=== PATIENT | female | born 1980 | race Caucasian/White ===

== ENCOUNTER 2018-05-24 17:05 | Inpatient (IN) ==
[2018-05-24] MEDS ORDERED: *HR* FentaNYL (PF) 100 MCG/2 ML VIAL IVP ONE (19:43)
[2018-05-24] MEDS ORDERED: Piperacillin/Tazobactam 3.375 GM in 0.9 % Sodium Chloride Mini Bag 100 ML IVPB ONE (19:46)
--- NOTE | 2018-05-24 19:52 | Emergency Department Note ---
Addendum entered and electronically signed by Praveen Correa 05/24/18 21:49: CTA currently pending due to concern for pulmonary embolism post elevated d- dimer. Patient care signed over to physicians Dr. Elham Alfaro and Dr. Gamal Daly at the end of my shift. Please see documentation by these physicians for further evaluation, management, and final disposition. Patient is hemodynamically stable at this time. Original Note: Disposition Clinical Impression: Septic shock Disposition: Admitted As Inpatient Referrals: NONE,PCP [Primary Care Provider] - Forms: ED Satisfaction Letter General Adult HPI - General Chief complaint: ED Nausea/Vomiting/Diarrhea Stated complaint: Pain all over Time Seen by Provider: 05/24/18 19:24 Source: patient Mode of arrival: ambulatory Limitations: no limitations Nursing Notes Reviewed: Yes Vital Signs Reviewed: Yes - History of Present Illness HPI Narrative: Patient is a 30-year-old female presenting to [facility] ED for a 3 day history of headaches, neck and back pain, chest pain/shortness of breath, nausea/vomiting/diarrhea. Patient states that she "hurts all over." Patient admits to past medical history of asthma for which she takes albuterol inhaler. Patient denies any other past medical history or medications. Patient states that she has no known drug allergies. Upon initial examination patient is lying in hospital bed, she is visibly shaking, she is complaining of extreme pain and myalgias throughout her body. Patient states that she has a tight feeling in her chest and is unable to take a deep breath. Onset (ago): day(s) Location: head, abdomen Pain Severity: severe Pain Scale: 8 - Related Data Home Medications Medication Instructions Recorded Confirmed Albuterol Inhaler 04/06/18 Allergies Allergy/AdvReac Type Severity Reaction Status Date / Time No Known Allergies Allergy Verified 04/06/18 15:28 All systems ED: reviewed and negative except as stated. Review of Systems: As Per HPI Past Medical History - Past Medical History Attestation: Yes The following information was validated with the patient. Source: patient, obtained from family Medical history: Reports: asthma Surgical history: Reports: orthopedic, other, other Psychiatric history: Reports: no psych history [employer] history: Reports: bilateral tubal ligation - Social History Smoking Status: Never smoker Smokeless Tobacco Status: No Alcohol use: Reports: none Drug use: Reports: none Physical Exam - General Limitations: no limitations General appearance: alert, in distress - Head Head exam: atraumatic, normocephalic, normal inspection - Eye Eye exam: Present: periorbital swelling - Neck Neck exam: Present: normal inspection, trachea midline - Chest Chest inspection: Present: symmetric chest wall rise - Respiratory Respiratory exam: Present: respiratory distress, other (Patient is tachypneic with shallow depth of respirations, respiratory auscultation is limited due to poor depth of respirations.) - Cardiovascular Cardiovascular exam: Present: regular rate, normal rhythm, normal heart sounds, +S1, +S2, other (Cardiac auscultation is limited due to patient habitus and respiratory status.). Absent: +S3, +S4 - Abdominal Exam Abdominal exam: Present: soft, normal bowel sounds. Absent: tenderness, distention, guarding, rebound, rigidity - Neurological Exam Neurological exam: Present: alert, oriented X3 - Psychiatric Psychiatric exam: Present: anxious - Skin Skin exam: Present: warm, dry, intact, normal color, diaphoresis. Absent: cyanosis, erythema, pallor, mottled Course Course Narrative: Patient presentation, review systems, physical exam concerning for sepsis of unknown etiology Chest x-ray, belly labs, d-dimer, troponin, lactic acid, blood culture, urinalysis, urine culture and urine will be performed in order to further assess for potential underlying pathology. - Reevaluation(s) Reevaluation #1: Patient d-dimer found to be elevated-we will perform CT at this time. Time: 21:35 Vital Signs Temperature 102.9 F H 05/24/18 17:46 Pulse Rate 120 05/24/18 17:46 Respiratory Rate 20 05/24/18 17:46 Blood Pressure 110/70 05/24/18 17:46 O2 Sat by Pulse Oximetry 100 05/24/18 17:46 Temperature 102.9 F H 05/24/18 19:40 Pulse Rate 105 05/24/18 21:19 Respiratory Rate 20 05/24/18 21:19 Blood Pressure 116/71 05/24/18 21:19 O2 Sat by Pulse Oximetry 99 05/24/18 21:19 Oxygen Delivery Oxygen Delivery Nasal Cannula Medical Decision Making - Lab Data Result diagrams: 05/24/18 20:05 05/24/18 20:05 Lab Results 05/24/18 05/24/18 05/24/18 Range/Units 20:05 20:05 20:05 WBC 5.3 (4.3-11.1) K/mcL RBC 4.39 (3.82-4.97) M/mcL Hgb 12.1 (11.5-15.4) g/dL Hct 36.9 (35.3-44.9) % MCV 84.1 (83.0-100.0) fL MCH 27.6 L (28.0-33.3) pg MCHC 32.8 (31.6-35.5) g/dL RDW 14.9 H (11.5-14.5) % Plt Count 177 (140-400) K/mcL MPV 9.5 (9.4-12.4) fL Immature Gran % 0.9 (0-4) % Seg Neutrophils % 74.9 % Lymphocytes % 16.7 % Monocytes % 7.3 % Eosinophils % 0.0 % Basophils % 0.2 % Neutrophils # 4.0 (1.6-8.9) K/mcL Lymphocytes # 0.9 (0.6-4.6) K/mcL Monocytes # 0.4 (0.0-1.3) K/mcL Eosinophils # 0.0 (0.0-0.6) K/mcL Basophils # 0.0 (0.0-0.2) K/mcL PT (9.4-12.1) Seconds INR APTT (26.0-36.0) Seconds D-Dimer (0-500) ng/mLFEU Sample Site ABG pH (7.32-7.45) pH Units ABG pCO2 (35-45) mmHg ABG pO2 (85-104) mmHg ABG HCO3 (21-27) mEq/L ABG Total CO2 (20-26) mEq/L ABG O2 Saturation (95-98) % ABG Base Excess (-2 to 3) mEq/L Ruben Test O2 Delivery Device Inspired O2 (1-15=lpm eq51-210=%) Sodium 136 (136-145) mEq/L Potassium 3.2 L (3.5-5.1) mEq/L Chloride 104 (98-107) mEq/L Carbon Dioxide 22 L (23-29) mEq/L BUN 9 (6-20) mg/dL Creatinine 0.94 (0.60-1.20) mg/dL Est GFR ( Amer) > 60 (> 60) Est GFR (Non-Af Amer) > 60 (> 60) BUN/Creatinine Ratio 10 (6-26) Glucose 96 (70-105) mg/dL Calculated Osmolality 281 (280-300) Lactic Acid 0.8 (0.5-2.2) mmol/L Calcium 8.5 L (8.6-10.3) mg/dL Phosphorus 1.3 L (2.7-4.5) mg/dL Magnesium 1.7 (1.6-2.6) mg/dL Total Bilirubin 1.0 (0.3-1.0) mg/dL Direct Bilirubin 0.3 H (0.0-0.2) mg/dL Indirect Bilirubin 0.7 (0.0-1.2) mg/dL AST 27 (13-39) Units/L ALT 22 (7-52) Units/L Alkaline Phosphatase 57 (34-104) Units/L Troponin I < 0.03 (< 0.04) ng/mL Serum Total Protein 6.7 (6.4-8.9) g/dL Albumin 3.9 (3.5-5.7) g/dL Globulin 2.8 (2.4-3.5) g/dL Albumin/Globulin Ratio 1.4 (1.1-2.2) 05/24/18 05/24/18 Range/Units 20:05 20:15 WBC (4.3-11.1) K/mcL RBC (3.82-4.97) M/mcL Hgb (11.5-15.4) g/dL Hct (35.3-44.9) % MCV (83.0-100.0) fL MCH (28.0-33.3) pg MCHC (31.6-35.5) g/dL RDW (11.5-14.5) % Plt Count (140-400) K/mcL MPV (9.4-12.4) fL Immature Gran % (0-4) % Seg Neutrophils % % Lymphocytes % % Monocytes % % Eosinophils % % Basophils % % Neutrophils # (1.6-8.9) K/mcL Lymphocytes # (0.6-4.6) K/mcL Monocytes # (0.0-1.3) K/mcL Eosinophils # (0.0-0.6) K/mcL Basophils # (0.0-0.2) K/mcL PT 14.7 H (9.4-12.1) Seconds INR 1.3 APTT 34.6 (26.0-36.0) Seconds D-Dimer 699 H (0-500) ng/mLFEU Sample Site R Radial ABG pH 7.51 H (7.32-7.45) pH Units ABG pCO2 27 L (35-45) mmHg ABG pO2 73 L (85-104) mmHg ABG HCO3 21 (21-27) mEq/L ABG Total CO2 22 (20-26) mEq/L ABG O2 Saturation 96 (95-98) % ABG Base Excess -1 (-2 to 3) mEq/L Ruben Test Positive O2 Delivery Device Cannula Inspired O2 36.0 (1-15=lpm yd36-130=%) Sodium (136-145) mEq/L Potassium (3.5-5.1) mEq/L Chloride (98-107) mEq/L Carbon Dioxide (23-29) mEq/L BUN (6-20) mg/dL Creatinine (0.60-1.20) mg/dL Est GFR ( Amer) (> 60) Est GFR (Non-Af Amer) (> 60) BUN/Creatinine Ratio (6-26) Glucose (70-105) mg/dL Calculated Osmolality (280-300) Lactic Acid (0.5-2.2) mmol/L Calcium (8.6-10.3) mg/dL Phosphorus (2.7-4.5) mg/dL Magnesium (1.6-2.6) mg/dL Total Bilirubin (0.3-1.0) mg/dL Direct Bilirubin (0.0-0.2) mg/dL Indirect Bilirubin (0.0-1.2) mg/dL AST (13-39) Units/L ALT (7-52) Units/L Alkaline Phosphatase (34-104) Units/L Troponin I (< 0.04) ng/mL Serum Total Protein (6.4-8.9) g/dL Albumin (3.5-5.7) g/dL Globulin (2.4-3.5) g/dL Albumin/Globulin Ratio (1.1-2.2)
[2018-05-24 20:30] LABS: Basophils % 0.2 %; Hematocrit 36.9 % (35.3-44.9); Hemoglobin 12.1 g/dL (11.5-15.4); Immature Granulocytes % 0.9 % (0-4); Lymphocytes # 0.9 K/mcL (0.6-4.6); Lymphocytes % 16.7 %; Mean Corpuscular HGB Conc 32.8 g/dL (31.6-35.5); Mean Corpuscular Hemoglobin 27.6 pg (28.0-33.3); Mean Corpuscular Volume 84.1 fL (83.0-100.0); Mean Platelet Volume 9.5 fL (9.4-12.4); Monocytes # 0.4 K/mcL (0.0-1.3); Monocytes % 7.3 %; Platelet Count 177 K/mcL (140-400); Red Blood Count 4.39 M/mcL (3.82-4.97); Red Cell Distribution Width 14.9 % (11.5-14.5); Segmented Neutrophils % 74.9 %
[2018-05-24] MEDS: 0.9 % Sodium Chloride 1,000 ML IVC SCH (20:32)
[2018-05-24 20:35] LABS: ABG Base Excess -1 mEq/L (-2 to 3); ABG HCO3 21 mEq/L (21-27); ABG Oxygen Saturation 96 % (95-98); ABG PCO2 27 mmHg (35-45); ABG PH 7.51 pH Units (7.32-7.45); ABG PO2 73 mmHg (85-104); ABG TCO2 22 mEq/L (20-26)
[2018-05-24 20:38] LABS: INR 1.3; Prothrombin Time 14.7 Seconds (9.4-12.1)
[2018-05-24 20:40] LABS: Activated Partial Thrombo Time 34.6 Seconds (26.0-36.0)
[2018-05-24 20:55] LABS: Troponin I < 0.03 ng/mL (< 0.04)
[2018-05-24] MEDS ORDERED: Isovue-370 500 ML BOTTLE IVP ONE (20:56)
[2018-05-24 20:57] LABS: Alanine Aminotransferase 22 Units/L (7-52); Albumin 3.9 g/dL (3.5-5.7); Albumin/Globulin Ratio 1.4 (1.1-2.2); Alkaline Phosphatase 57 Units/L (34-104); Aspartate Amino Transferase 27 Units/L (13-39); BUN/Creatinine Ratio 10 (6-26); Bilirubin,Direct 0.3 mg/dL (0.0-0.2); Bilirubin,Indirect 0.7 mg/dL (0.0-1.2); Blood Urea Nitrogen 9 mg/dL (6-20); Calcium 8.5 mg/dL (8.6-10.3); Carbon Dioxide 22 mEq/L (23-29); Chloride 104 mEq/L (98-107); Globulin 2.8 g/dL (2.4-3.5); Glucose 96 mg/dL (70-105); Magnesium 1.7 mg/dL (1.6-2.6); Osmolality,Calculated 281 (280-300); Phosphorous 1.3 mg/dL (2.7-4.5); Potassium 3.2 mEq/L (3.5-5.1); Sodium 136 mEq/L (136-145); Total Protein 6.7 g/dL (6.4-8.9); eGFR For Non-African Americans > 60 (> 60)
--- NOTE | 2018-05-24 20:57 | Emergency Department Note ---
Disposition Clinical Impression: Septic shock Disposition: Admitted As Inpatient Referrals: NONE,PCP [Primary Care Provider] - Forms: ED Satisfaction Letter General Adult HPI - General Chief complaint: ED Nausea/Vomiting/Diarrhea Stated complaint: Pain all over Time Seen by Provider: 05/24/18 19:24 Source: patient Mode of arrival: ambulatory Limitations: no limitations Nursing Notes Reviewed: Yes Vital Signs Reviewed: Yes - History of Present Illness HPI Narrative: Attestation note ED attending note I examined this patient and my medical decision-making was reviewed with the emergency medicine resident Dr. Praveen Stoner. I agree with the documented findings, disposition and treatment plan as described except to the extent set forth below. Briefly: 30-year-old female history of asthma presents with malaise cough shortness of breath and myalgias all over. Febrile up to 103 here tachycardic at 120 briefly hypotensive in the 90s after fluid bolus systolic went up to 1:30 patient is being worked up for septic shock patient is getting sepsis protocol including IV antibiotics fluid boluses screening labs blood cultures urinalysis and chest x-ray. Admission anticipated. Providing 45 minutes critical care service for this patient. Disposition pending Location: head, abdomen Pain Scale: 8 - Related Data Home Medications Medication Instructions Recorded Confirmed Albuterol Inhaler 04/06/18 Allergies Allergy/AdvReac Type Severity Reaction Status Date / Time No Known Allergies Allergy Verified 04/06/18 15:28 Past Medical History - Past Medical History Medical history: Reports: asthma Surgical history: Reports: orthopedic, other, other Psychiatric history: Reports: no psych history [employer] history: Reports: bilateral tubal ligation - Social History Smoking Status: Never smoker Smokeless Tobacco Status: No Alcohol use: Reports: none Drug use: Reports: none Physical Exam - General Limitations: no limitations General appearance: alert, in distress Course Vital Signs Temperature 102.9 F H 05/24/18 17:46 Pulse Rate 120 05/24/18 17:46 Respiratory Rate 20 05/24/18 17:46 Blood Pressure 110/70 05/24/18 17:46 O2 Sat by Pulse Oximetry 100 05/24/18 17:46 Temperature 102.9 F H 05/24/18 19:40 Pulse Rate 110 05/24/18 20:25 Respiratory Rate 20 05/24/18 20:25 Blood Pressure 131/82 05/24/18 20:25 O2 Sat by Pulse Oximetry 96 05/24/18 20:25 Oxygen Delivery Oxygen Delivery Nasal Cannula Medical Decision Making - Lab Data Result diagrams: 05/24/18 20:05 Lab Results 05/24/18 05/24/18 05/24/18 Range/Units 20:05 20:05 20:05 WBC 5.3 (4.3-11.1) K/mcL RBC 4.39 (3.82-4.97) M/mcL Hgb 12.1 (11.5-15.4) g/dL Hct 36.9 (35.3-44.9) % MCV 84.1 (83.0-100.0) fL MCH 27.6 L (28.0-33.3) pg MCHC 32.8 (31.6-35.5) g/dL RDW 14.9 H (11.5-14.5) % Plt Count 177 (140-400) K/mcL MPV 9.5 (9.4-12.4) fL Immature Gran % 0.9 (0-4) % Seg Neutrophils % 74.9 % Lymphocytes % 16.7 % Monocytes % 7.3 % Eosinophils % 0.0 % Basophils % 0.2 % Neutrophils # 4.0 (1.6-8.9) K/mcL Lymphocytes # 0.9 (0.6-4.6) K/mcL Monocytes # 0.4 (0.0-1.3) K/mcL Eosinophils # 0.0 (0.0-0.6) K/mcL Basophils # 0.0 (0.0-0.2) K/mcL PT (9.4-12.1) Seconds INR APTT (26.0-36.0) Seconds D-Dimer (0-500) ng/mLFEU Sample Site ABG pH (7.32-7.45) pH Units ABG pCO2 (35-45) mmHg ABG pO2 (85-104) mmHg ABG HCO3 (21-27) mEq/L ABG Total CO2 (20-26) mEq/L ABG O2 Saturation (95-98) % ABG Base Excess (-2 to 3) mEq/L Ruben Test O2 Delivery Device Inspired O2 (1-15=lpm kv94-528=%) Lactic Acid 0.8 (0.5-2.2) mmol/L Troponin I < 0.03 (< 0.04) ng/mL 05/24/18 05/24/18 Range/Units 20:05 20:15 WBC (4.3-11.1) K/mcL RBC (3.82-4.97) M/mcL Hgb (11.5-15.4) g/dL Hct (35.3-44.9) % MCV (83.0-100.0) fL MCH (28.0-33.3) pg MCHC (31.6-35.5) g/dL RDW (11.5-14.5) % Plt Count (140-400) K/mcL MPV (9.4-12.4) fL Immature Gran % (0-4) % Seg Neutrophils % % Lymphocytes % % Monocytes % % Eosinophils % % Basophils % % Neutrophils # (1.6-8.9) K/mcL Lymphocytes # (0.6-4.6) K/mcL Monocytes # (0.0-1.3) K/mcL Eosinophils # (0.0-0.6) K/mcL Basophils # (0.0-0.2) K/mcL PT 14.7 H (9.4-12.1) Seconds INR 1.3 APTT 34.6 (26.0-36.0) Seconds D-Dimer 699 H (0-500) ng/mLFEU Sample Site R Radial ABG pH 7.51 H (7.32-7.45) pH Units ABG pCO2 27 L (35-45) mmHg ABG pO2 73 L (85-104) mmHg ABG HCO3 21 (21-27) mEq/L ABG Total CO2 22 (20-26) mEq/L ABG O2 Saturation 96 (95-98) % ABG Base Excess -1 (-2 to 3) mEq/L Ruben Test Positive O2 Delivery Device Cannula Inspired O2 36.0 (1-15=lpm qb34-724=%) Lactic Acid (0.5-2.2) mmol/L Troponin I (< 0.04) ng/mL
--- NOTE | 2018-05-24 22:15 | Emergency Department Note ---
START Narrative - START START: I examined this patient and my medical decision-making was reviewed with the Resident Physician. I agree with the documented findings, disposition and treatment plan as described except to the extent set forth below. Patient was signed out to me by Dr. cMpherson. Plan was to follow-up the CT report and patient would likely need to be admitted. The resident or any spoke with the hospitalist who accepted the patient. I will follow-up the CT report.
[2018-05-24] MEDS ORDERED: *HR* Heparin 5,000 UNIT/ML VIAL IVP PRN ×2 (23:13)
[2018-05-24] MEDS ORDERED: *HR* Heparin 5,000 UNIT/ML VIAL IVP ONE (23:13)
[2018-05-24 23:34] LABS: Hematocrit 34.2 % (35.3-44.9); Hemoglobin 11.3 g/dL (11.5-15.4); Mean Corpuscular Volume 84.9 fL (83.0-100.0); Platelet Count 137 K/mcL (140-400); Red Blood Count 4.03 M/mcL (3.82-4.97)
[2018-05-24] MEDS ORDERED: Vancomycin (wt based) 1,000 MG VIAL IVPB SCH (23:45)
[2018-05-24] MEDS ORDERED: Acetaminophen 325 MG TABLET PO PRN (23:54)
[2018-05-24] MEDS ORDERED: Albuterol 2.5 MG/3 ML NEBULIZER IH PRN (23:54)
[2018-05-24] MEDS ORDERED: Naloxone 0.4 MG/ML INJ IVP PRN (23:54)
[2018-05-25] LABS: INR 1.3; Prothrombin Time 14.7 Seconds (9.4-12.1)
--- NOTE | 2018-05-25 00:12 | Internal Med History&Physical ---
Date of Encounter: 05/24/18 Time of Encounter: 23:00 Internal Medicine - H&P: HPI Chief complaint: fevre, body aches, cough, SOB Admitted From: Emergency Dept Plans for Post Hospital Care: Home History of present illness: Ms. Andrade is a 38 year old female who presents to ER with complaints of fever, cough, shortness of breath, myalgias, body aches, and wheezing. Work-up in the ER was concerning for sepsis. There was also a clinical suspicion of possible pneumonia. She had blood cultures drawn, antibiotics administered, and request made to admit to hospitalist service. Of note, her d-dimer was elevated, and I discussed with the ER staff about pending CT angiogram of the chest. Upon my assessment of the patient in the ER, she appears to be acutely ill, dehydrated, in moderate respiratory distress, and febrile. As I arrived to the ER, the CT angiogram of the chest resulted and was inconclusive and may indicate a possible small subsegmental right sided PE. Therefore, heparin drip is being instituted in the ER. As I discussed with the patient, she states she has had about a 2 to 3 -day history of fever, chills, body aches, headache, backache, pleural chest pain, shortness breath, coughing, and profound wheezing. She denies any known ill contacts. She is also complaining of significant myalgias and arthralgias. She has had some vomiting and nausea but no diarrhea. She denies any abdominal pain. She denies any prior history of PE or DVT. She does confirm a history of asthma which is usually well controlled, and she rarely needs her rescue inhaler. She denies any exposure to chronic smoke in her home. Past Med Surg Social Fam HX - Past Medical History Source: patient, old records reviewed, other (ER notes) Medical history: asthma Additional medical history: Asthma Psychiatric history: no psych history - Past Surgical History Surgical History: orthopedic, other Additional surgical history: chante knee scopes - Social History Smoking Status: Never smoker Smokeless Tobacco Status: No Alcohol use: none Drug use: none Current living situation: Home, With Family Activity Level: Independent ambulation Recent Out of Country Travel Within the Last 8 Weeks: No - Family History Mother Hx Family Cardiac Disorders: No Hx Family Respiratory Disorders: Yes Father History Unknown: Yes Internal Medicine - H&P: Meds Albuterol Inhaler 04/06/18 [History] Allergy/AdvReac Type Severity Reaction Status Date / Time No Known Allergies Allergy Verified 04/06/18 15:28 - Constitutional Constitutional: chills, fever(s), no night sweats - EENT Eyes: no blurry vision, no change in vision Ears: no ear pain, no tinnitus Nose, mouth and throat: sore throat, no nasal congestion, no sinus pain, no sinus pressure - Cardiovascular Cardiovascular ROS IM: chest pain (pleuritic), dyspnea, no orthopnea, no paroxysmal nocturnal dyspnea, no syncope - Respiratory Respiratory: cough, dyspnea, wheezing, pain on inspiration, chest congestion, pain with cough, no hemoptysis, no excessive phlegm production, no change in phlegm color - Gastrointestinal Gastrointestinal: nausea, vomiting, no abdominal pain, no diarrhea, no hematemesis, no hematochezia, no melena - Genitourinary Genitourinary: no abnormal menses, no dysuria, no flank pain, no hematuria - Musculoskeletal Musculoskeletal ROS IM: arthralgias, back pain, myalgias - Integumentary Integumentary IM: no rash, no jaundice - Neurological Neurological ROS: no confusion, no dizziness, no focal weakness, no frequent falls, no headache(s) - Psychiatric Psychiatric: no anxiety, no depression - Endocrine Endocrine IM: no cold intolerance, no heat intolerance, no polydipsia, no polyu william - Allergic/Immunologic Allergic/Immunologic: wheezing, no GI upset with certain foods - Constitutional Vitals: Temp Pulse Resp BP Pulse Ox 102.9 F H 96 16 114/67 94 05/24/18 19:40 05/24/18 23:47 05/24/18 23:47 05/24/18 23:47 05/24/18 23:47 General appearance: Present: cooperative, mild distress, A&O X 3, pleasant, answers questions appropriately Exam: appears acutely-ill, mildly toxic, in moderate respiratory distress/wheezing/coughing - Head Head exam: Present: atraumatic, normal inspection - Eye Eye exam: Present: EOMI, PERRL. Absent: scleral icterus Pupils: Present: normal accommodation - ENT ENT exam: Present: mucous membranes dry, normal exam, normal oropharynx, TM's normal bilaterally - Neck Neck exam general surgery: Present: full ROM, supple, trachea midline. Absent: lymphadenopathy, tenderness, nuchal rigidity, thyromegaly - Respiratory Respiratory exam: Present: accessory muscle use, prolonged expiratory phase, respiratory distress, rhonchi, wheezes, tachypnea. Absent: chest wall tenderness, rales Additional comments: + splinting on deep inspiration - Cardiovascular Cardiovascular exam: Present: distant heart sounds, RRR, +S1, +S2, tachycardia (HR 100's). Absent: diastolic murmur, systolic murmur - GI/Abdominal GI/Abdominal exam: Present: normal bowel sounds, soft. Absent: guarding, hepatomegaly, mass, rebound, splenomegaly, tenderness - Extremities Exam Extremities exam: Present: full ROM, normal capillary refill, pedal edema (non-pitting), tenderness (diffuse myalgias), warm, radial pulses palpable and symmetrical. Absent: calf tenderness, joint swelling, mottling - Back Exam Back exam: Present: normal inspection. Absent: CVA tenderness (L), CVA tenderness (R) - Neurological Exam Neurological exam: Present: alert, CN II-XII intact, oriented X3, no focal deficits, strengths equal and symetr throughout - Psychiatric Psychiatric exam: Present: normal affect, normal mood - Skin Skin exam: Present: dry, intact, warm. Absent: petechiae, rash Internal Med - H&P Results - Labs CBC & Chem 7: 05/24/18 23:24 05/24/18 20:05 Labs: Short CBC 05/24/18 05/24/18 Range/Units 20:05 23:24 WBC 5.3 4.9 (4.3-11.1) K/mcL Hgb 12.1 11.3 L (11.5-15.4) g/dL Hct 36.9 34.2 L (35.3-44.9) % Plt Count 177 137 L (140-400) K/mcL Neutrophils # 4.0 (1.6-8.9) K/mcL BMP 05/24/18 20:05 Sodium 136 Potassium 3.2 L Chloride 104 Carbon Dioxide 22 L BUN 9 Creatinine 0.94 Glucose 96 Calcium 8.5 L Cardiac Enzymes 05/24/18 Range/Units 20:05 Troponin I < 0.03 (< 0.04) ng/mL Liver Function 05/24/18 Range/Units 20:05 Total Bilirubin 1.0 (0.3-1.0) mg/dL Direct Bilirubin 0.3 H (0.0-0.2) mg/dL AST 27 (13-39) Units/L ALT 22 (7-52) Units/L Alkaline Phosphatase 57 (34-104) Units/L Albumin 3.9 (3.5-5.7) g/dL - ABG Interpretation Interpretation: ABG interpreted by me ABG results: 05/24/18 20:15 ABG pH 7.51 H ABG pCO2 27 L ABG pO2 73 L ABG HCO3 21 ABG Total CO2 22 ABG O2 Saturation 96 ABG Base Excess -1 Interpretation: respiratory alkalosis - EKG Data -: EKG Interpreted by Myself - EKG Data Prior EKG available for review: no EKG comments: 05/25/18 00:21 sinus tachycardia - Impressions ITS Impressions Chest X-Ray 05/24/18 19:41 IMPRESSION: No acute process. D/ / Bird Plascencia MD / Bird Plascencia MD Interpreting Provider: Bird Plascencia MD Chest CTA 05/24/18 20:56 IMPRESSION: Questionable filling defect in the right middle lobe lateral segmental pulmonary artery, which very likely represents artifact. However, it would be difficult to exclude pulmonary embolism. Correlate with clinical suspicion, and consider further evaluation with lower extremity Doppler ultrasound. Findings were discussed with Dr. Daly at 10:59 pm on 05/24/2018. D/ / Renny Claros MD / Renny Claros MD Interpreting Provider: Renny Claros MD - Diagnostic Studies Chest x-ray Status: image reviewed by me (negative) - Assessment and plan (1) Severe sepsis Current Visit: Yes Status: Acute Assessment and plan: 1. Will continue IVF, antibiotics, and trend lactate. 2. BP is preserved and tachycardia is responding to IVF and fever control. 3. Will monitor on telemetry and 2N step-down unit. 4. Antibiotics for suspected lung source -- Vancomycin, Rocephin, Zithromax. 5. I requested ER obtain FLU A/B PCR. (2) Asthma exacerbation Current Visit: Yes Status: Acute Assessment and plan: 1. Will schedule IV steroids, DuoNebs, and PRN albuterol aerosols. 2. Oxygen as needed for support. 3. Monitor closely. If necessary, will intubate for respiratory fatigue; however, at this time, she is not exhibiting such clinical findings. Qualifiers: Asthma severity: moderate Asthma persistence: persistent Qualified Code(s): J45.41 - Moderate persistent asthma with (acute) exacerbation (3) Pulmonary embolism Current Visit: Yes Status: Suspected Assessment and plan: 1. CTA inconclusive and may reflect a subsegmental PE on the right. 2. Empiric heparin drip started in ER. 3. BLE Dopplers ordered for the morning. May need repeat CTA if Dopplers are negative. Qualifiers: Pulmonary embolism type: other Chronicity: acute Acute cor pulmonale presence: without acute cor pulmonale Qualified Code(s): I26.99 - Other p ulmonary embolism without acute cor pulmonale (4) DVT prophylaxis Current Visit: Yes Status: Acute Assessment and plan: 1. Heparin Drip as above.
[2018-05-25] MEDS: Ipratropium/Albuterol Neb 3 ML IH SCH ×6 (00:40→20:16)
[2018-05-25] MEDS: 0.9 % Sodium Chloride 1,000 ML IVC SCH (00:46)
[2018-05-25] MEDS ORDERED: Azithromycin 500 MG in D5% in Water 250 ML IVPB SCH (01:00)
[2018-05-25] MEDS: Heparin 25,000 UNIT/500 ML D5W 25,000 UNIT/500 ML BAG IVC SCH (02:49)
[2018-05-25] MEDS: 0.9 % Sodium Chloride w KCl 20 MEQ/1,000 ML MLS IVC SCH ×2 (04:16→16:00)
[2018-05-25] MEDS: methylPREDNISolone 125 MG/2 ML VIAL IVP SCH ×4 (04:16→23:06)
[2018-05-25 04:32] LABS: Basophils % 0.2 %; Hematocrit 35.7 % (35.3-44.9); Hemoglobin 11.6 g/dL (11.5-15.4); Immature Granulocytes % 0.8 % (0-4); Lymphocytes # 1.1 K/mcL (0.6-4.6); Lymphocytes % 24.2 %; Mean Corpuscular HGB Conc 32.5 g/dL (31.6-35.5); Mean Corpuscular Hemoglobin 27.6 pg (28.0-33.3); Mean Corpuscular Volume 84.8 fL (83.0-100.0); Mean Platelet Volume 9.4 fL (9.4-12.4); Monocytes # 0.4 K/mcL (0.0-1.3); Monocytes % 7.6 %; Neutrophils # 3.2 K/mcL (1.6-8.9); Platelet Count 153 K/mcL (140-400); Red Blood Count 4.21 M/mcL (3.82-4.97); Red Cell Distribution Width 15.2 % (11.5-14.5); Segmented Neutrophils % 67.2 %
[2018-05-25 04:49] LABS: Alanine Aminotransferase 20 Units/L (7-52); Albumin 3.5 g/dL (3.5-5.7); Albumin/Globulin Ratio 1.3 (1.1-2.2); Alkaline Phosphatase 50 Units/L (34-104); Aspartate Amino Transferase 30 Units/L (13-39); BUN/Creatinine Ratio 9 (6-26); Blood Urea Nitrogen 8 mg/dL (6-20); Calcium 7.4 mg/dL (8.6-10.3); Carbon Dioxide 19 mEq/L (23-29); Chloride 109 mEq/L (98-107); Globulin 2.7 g/dL (2.4-3.5); Glucose 106 mg/dL (70-105); Magnesium 1.7 mg/dL (1.6-2.6); Osmolality,Calculated 289 (280-300); Potassium 3.4 mEq/L (3.5-5.1); Sodium 140 mEq/L (136-145); Total Protein 6.2 g/dL (6.4-8.9); eGFR For Non-African Americans > 60 (> 60)
[2018-05-25] MEDS ORDERED: Aminoglycoside Consult 1 EACH MC ONE (07:38)
[2018-05-25] MEDS ORDERED: cefTRIAXone 2,000 MG in Water for inj. (sterile) 20 ML 20 ML IVP SCH (08:00)
[2018-05-25 09:35] LABS: Bilirubin,Urine Negative (Negative); Blood,Urine Negative (Negative); Clarity,Urine Clear (Clear); Color,Urine Yellow (Yellow); Glucose,Urine (UA) Normal (Normal); Ketones,Urine Negative (Negative); Leukocyte Esterase,Urine Negative (Negative); Nitrite,Urine Negative (Negative); Protein,Urine Negative (Neg-Trace); Specific Gravity,Urine 1.013 (1.010-1.025); Urobilinogen,Urine Normal (Normal)
[2018-05-25 11:12] LABS: Adenovirus Not Detected (Not Detect); Bordetella Pertussis Not Detected (Not Detect); Chlamydophila pneumoniae Not Detected (Not Detect); Coronavirus 229E Not Detected (Not Detect); Coronavirus HKU1 Not Detected (Not Detect); Coronavirus NL63 Not Detected (Not Detect); Coronavirus OC43 Not Detected (Not Detect); Human Metapneumovirus Not Detected (Not Detect); Human Rhinovirus/Enterovirus Not Detected (Not Detect); Influenza A Subtype 2009 H1 Not Detected (Not Detect); Influenza A Untypeable Not Detected (Not Detect); Influenza B Not Detected (Not Detect); Mycoplasma pneumoniae Not Detected (Not Detect); Parainfluenza Virus 1 Not Detected (Not Detect); Parainfluenza Virus 2 Not Detected (Not Detect); Parainfluenza Virus 3 Not Detected (Not Detect); Parainfluenza Virus 4 Not Detected (Not Detect); Respiratory Syncytial Virus Not Detected (Not Detect)
--- NOTE | 2018-05-25 13:08 | Internal Med Progress Note ---
Hospitalist Progress Note - Encounter Date of Encounter: 05/25/18 Time of Encounter: 13:05 - Subjective Interval History: Still feels crummy, diaphoretic and coughing and short of breath, with lots of diarrhea now - Exam Vitals: Temp Pulse Resp BP Pulse Ox 98.6 F 91 16 122/81 96 05/25/18 11:10 05/25/18 11:10 05/25/18 11:40 05/25/18 11:10 05/25/18 11:40 Exam: General: diaphoretic, ill appearing Thoracic: Diffuse expiratory wheezing, mild increase work of breathing Cardio: Normal S1 and S2, regular rate and rhythm, no murmurs Abdomen: Soft, nontender, nondistended. Neuro: Awake, fully oriented. Speech fluent - Summary of Assessment and Plan Summary of Assessment and Plan: Mushtaq Andrade is a 38 F w hx asthma who p/w fever, myalgias, SOB and wheezing, with hypoxia and positive Flu A, suggestive of acute influenza infection causing asthma exacerbation. Acute influenza A respiratory infection: - tamiflu 75 bid - droplet precautions - stop hep gtt - stop abx Asthma exacerbation: - decrease to solumedrol 80 daily - vicente q4h&prn Sepsis: 2/2 above viral infxn, vitals improving Diarrhea: likely 2/2 flu and abx, C diff negative, will start imodium PPx: lovenox FEN: regular, no MIVF Lines: PIV Consults: Code: Full Dispo: patient requires inpatient eval and management at this time. Anticipate 2-3 days. Will be homegoing. - Time Spent with Patient Total time spent is greater than 50% in coordination of care (as documented) at patient's floor/unit and/or counseling patient: Internal Medicine: Result - Labs CBC & Chem 7: 05/25/18 04:12 05/25/18 04:12 Labs: Short CBC 05/24/18 05/24/18 05/25/18 Range/Units 20:05 23:24 04:12 WBC 5.3 4.9 4.7 (4.3-11.1) K/mcL Hgb 12.1 11.3 L 11.6 (11.5-15.4) g/dL Hct 36.9 34.2 L 35.7 (35.3-44.9) % Plt Count 177 137 L 153 (140-400) K/mcL Neutrophils # 4.0 3.2 (1.6-8.9) K/mcL BMP 05/24/18 05/25/18 20:05 04:12 Sodium 136 140 Potassium 3.2 L 3.4 L Chloride 104 109 H Carbon Dioxide 22 L 19 L BUN 9 8 Creatinine 0.94 0.90 Glucose 96 106 H Calcium 8.5 L 7.4 L Cardiac Enzymes 05/24/18 Range/Units 20:05 Troponin I < 0.03 (< 0.04) ng/mL Liver Function 05/24/18 05/25/18 Range/Units 20:05 04:12 Total Bilirubin 1.0 1.0 (0.3-1.0) mg/dL Direct Bilirubin 0.3 H (0.0-0.2) mg/dL AST 27 30 (13-39) Units/L ALT 22 20 (7-52) Units/L Alkaline Phosphatase 57 50 (34-104) Units/L Albumin 3.9 3.5 (3.5-5.7) g/dL Urine 05/25/18 Range/Units 08:50 Urine Color Yellow (Yellow) Urine Clarity Clear (Clear) Urine pH 6.0 (5.0-8.0) pH Units Ur Specific [place] 1.013 (1.010-1.025) Urine Protein Negative (Neg-Trace) mg/dL Urine Glucose (UA) Normal (Normal) mg/dL - ABG Interpretation ABG results: ABG ABG pH 7.51 pH Units (7.32-7.45) H 05/24/18 20:15 ABG pCO2 27 mmHg (35-45) L 05/24/18 20:15 ABG pO2 73 mmHg (85-104) L 05/24/18 20:15 ABG O2 Saturation 96 % (95-98) 05/24/18 20:15 PT/INR, D-dimer PT 14.7 Seconds (9.4-12.1) H 05/24/18 23:24 D-Dimer 699 ng/mLFEU (0-500) H 05/24/18 20:05 - Impressions Impressions Chest X-Ray 05/24/18 19:41 IMPRESSION: No acute process. D/ / Bird Plascencia MD / Bird Plascencia MD Interpreting Provider: Bird Plascencia MD Chest CTA 05/24/18 20:56 IMPRESSION: Questionable filling defect in the right middle lobe lateral segmental pulmonary artery, which very likely represents artifact. However, it would be difficult to exclude pulmonary embolism. Correlate with clinical suspicion, and consider further evaluation with lower extremity Doppler ultrasound. Findings were discussed with Dr. Daly at 10:59 pm on 05/24/2018. D/ / Renny Claros MD / Renny Claros MD Interpreting Provider: Renny Claros MD Consult Discharge Plan - Plan Referrals: Shaquille Ruggiero, [Partnered Physician] - 06/06/18 1:30 pm (Please take with you your new patient packet that will arrive in the mail filled out, if you don't receive your new patient packet please show up 30 minutes early to fill out paper work. Please take with you your picture ID, Ins. Card, all medications including over the counter meds. This office does not give out controlled meds. If you need to cancel please call [phone] 24 hours prior to your appointment. this office is located across from [facility].)
[2018-05-25] MEDS: traMADol 50 MG TABLET PO PRN (20:45)
--- NOTE | 2018-05-25 20:48 | Electrocardiograph Report ---
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
[2018-05-26] MEDS: Ipratropium/Albuterol Neb 3 ML IH SCH ×6 (00:30→19:52)
[2018-05-26] MEDS: *HR* Enoxaparin 40 MG/0.4 ML SYRINGE SQ SCH (04:54)
[2018-05-26 05:23] LABS: BUN/Creatinine Ratio 14 (6-26); Blood Urea Nitrogen 8 mg/dL (6-20); Calcium 8.1 mg/dL (8.6-10.3); Carbon Dioxide 22 mEq/L (23-29); Chloride 110 mEq/L (98-107); Glucose 164 mg/dL (70-105); Magnesium 2.2 mg/dL (1.6-2.6); Osmolality,Calculated 288 (280-300); Potassium 4.4 mEq/L (3.5-5.1); Sodium 138 mEq/L (136-145); eGFR For Non-African Americans > 60 (> 60)
[2018-05-26] MEDS: methylPREDNISolone 125 MG/2 ML VIAL IVP SCH ×2 (08:38→17:04)
[2018-05-26] MEDS: traMADol 50 MG TABLET PO PRN (08:46)
[2018-05-26] MEDS: Acetaminophen 325 MG TABLET PO SCH ×2 (14:24→17:05)
[2018-05-26] MEDS ORDERED: Ibuprofen 400 MG TABLET PO SCH (15:00)
--- NOTE | 2018-05-26 16:53 | Internal Med Progress Note ---
Hospitalist Progress Note - Encounter Date of Encounter: 05/26/18 Time of Encounter: 16:51 - Subjective Interval History: Continues to feel bad but slightly better, cough and wheezing improving slowly, diarrhea slowed down, still diaphoretic and sore - Exam Vitals: Temp Pulse Resp BP Pulse Ox 97.4 F L 91 18 113/67 93 05/26/18 07:44 05/26/18 07:44 05/26/18 15:32 05/26/18 11:00 05/26/18 15:32 Exam: General: still diaphoretic, ill but non-toxic appearing Thoracic: Diffuse expiratory wheezing, increased work of breathing stable Cardio: Normal S1 and S2, regular rate and rhythm, no murmurs Abdomen: Soft, nontender, nondistended. Neuro: Awake, fully oriented. Speech fluent - Summary of Assessment and Plan Summary of Assessment and Plan: Mushtaq Andrade is a 38 F w hx asthma who p/w fever, myalgias, SOB and wheezing, with hypoxia and positive Flu A, suggestive of acute influenza infection causing asthma exacerbation. Acute influenza A respiratory infection: - tamiflu 75 bid - droplet precautions Asthma exacerbation: - decrease to solumedrol 80 daily - vicente q4h&prn Acute hypoxic respiratory failure (poa): requiring O2 to maintain sats, likely 2/2 asthma 2/2 flu A above - wean as able Sepsis: resolved Diarrhea: resolved w imodium PPx: lovenox FEN: regular, no MIVF Lines: PIV Consults: Code: Full Dispo: patient requires inpatient eval and management at this time. Anticipate 1-2 days. Will be homegoing. - Time Spent with Patient Total time spent is greater than 50% in coordination of care (as documented) at patient's floor/unit and/or counseling patient: Internal Medicine: Result - Labs CBC & Chem 7: 05/25/18 04:12 05/26/18 04:28 Labs: BMP 05/26/18 04:28 Sodium 138 Potassium 4.4 Chloride 110 H Carbon Dioxide 22 L BUN 8 Creatinine 0.59 L Glucose 164 H Calcium 8.1 L - ABG Interpretation ABG results: ABG ABG pH 7.51 pH Units (7.32-7.45) H 05/24/18 20:15 ABG pCO2 27 mmHg (35-45) L 05/24/18 20:15 ABG pO2 73 mmHg (85-104) L 05/24/18 20:15 ABG O2 Saturation 96 % (95-98) 05/24/18 20:15 PT/INR, D-dimer PT 14.7 Seconds (9.4-12.1) H 05/24/18 23:24 D-Dimer 699 ng/mLFEU (0-500) H 05/24/18 20:05 Consult Discharge Plan - Plan Referrals: Shaquille Ruggiero DO [Partnered Physician] - 06/06/18 1:30 pm (Please take with you your new patient packet that will arrive in the mail filled out, if you don't receive your new patient packet please show up 30 minutes early to fill out paper work. Please take with you your picture ID, Ins. Card, all medicati ons including over the counter meds. This office does not give out controlled meds. If you need to cancel please call [phone] 24 hours prior to your appointment. this office is located across from [facility].)
[2018-05-26] MEDS ORDERED: Ondansetron 4 MG/2 ML VIAL IVP PRN (19:09)
[2018-05-27] MEDS: Acetaminophen 325 MG TABLET PO SCH ×5 (00:24→23:34)
[2018-05-27] MEDS: methylPREDNISolone 125 MG/2 ML VIAL IVP SCH ×4 (00:24→23:35)
[2018-05-27] MEDS: Ipratropium/Albuterol Neb 3 ML IH SCH ×7 (00:40→23:44)
[2018-05-27] MEDS: *HR* Enoxaparin 40 MG/0.4 ML SYRINGE SQ SCH (06:40)
--- NOTE | 2018-05-27 14:09 | Internal Med Progress Note ---
Hospitalist Progress Note - Encounter Date of Encounter: 05/27/18 Time of Encounter: 14:07 - Subjective Interval History: Feels the same today as yesterday. Episodic diarrhea. Breathing still difficult and wheezy. Feels sore all over. - Exam Vitals: Temp Pulse Resp BP Pulse Ox 98.2 F 85 17 109/75 92 05/27/18 11:20 05/27/18 11:20 05/27/18 11:20 05/27/18 11:20 05/27/18 11:20 Exam: General: still diaphoretic, ill but non-toxic appearing, still wearing O2 Thoracic: Diffuse expiratory wheezing, normal work of breathing Cardio: Normal S1 and S2, regular rate and rhythm, no murmurs Abdomen: Soft, nontender, nondistended. Neuro: Awake, fully oriented. Speech fluent - Summary of Assessment and Plan Summary of Assessment and Plan: Mushtaq Andrade is a 38 F w hx asthma who p/w fever, myalgias, SOB and wheezing, with hypoxia and positive Flu A, suggestive of acute influenza infection causing asthma exacerbation. Acute influenza A respiratory infection: still septic appearing but vitals and WBC normalized - tamiflu 75 bid - droplet precautions Asthma exacerbation: improving slightly - continue solumedrol 80 daily - vicente q4h&prn Acute hypoxic respiratory failure: requiring O2 to maintain sats, likely 2/2 asthma 2/2 flu A above - wean as able Sepsis: resolved Diarrhea: resolved w imodium PPx: lovenox FEN: regular, no MIVF Lines: PIV Consults: Code: Full Dispo: patient requires inpatient eval and management at this time. Anticipate 1-2 days. Will be homegoing. - Time Spent with Patient Total time spent is greater than 50% in coordination of care (as documented) at patient's floor/unit and/or counseling patient: Internal Medicine: Result - Labs CBC & Chem 7: 05/25/18 04:12 05/26/18 04:28 - ABG Interpretation ABG results: ABG ABG pH 7.51 pH Units (7.32-7.45) H 05/24/18 20:15 ABG pCO2 27 mmHg (35-45) L 05/24/18 20:15 ABG pO2 73 mmHg (85-104) L 05/24/18 20:15 ABG O2 Saturation 96 % (95-98) 05/24/18 20:15 PT/INR, D-dimer PT 14.7 Seconds (9.4-12.1) H 05/24/18 23:24 D-Dimer 699 ng/mLFEU (0-500) H 05/24/18 20:05 Consult Discharge Plan - Plan Referrals: Shaquille Ruggiero, DO [Partnered Physician] - 06/06/18 1:30 pm (Please take with you your new patient packet that will arrive in the mail filled out, if you don't receive your new patient packet please show up 30 minutes early to fill out paper work. Please take with you your picture ID, Ins. Card, all medications including over the counter meds. This office does not give out controlled meds. If you need to cancel please call [phone] 24 hours prior to your appointment. this office is located across from [facility].)
[2018-05-27] MEDS: Heparin 25,000 UNIT/500 ML D5W 25,000 UNIT/500 ML BAG IVC SCH (19:26)
[2018-05-27] MEDS ORDERED: 0.9 % Sodium Chloride 500 ML IVC ONE (22:11)
[2018-05-28] MEDS ORDERED: Isovue-370 500 ML BOTTLE IVP ONE (01:16)
--- NOTE | 2018-05-28 01:21 | Event Note ---
Date of Encounter: 05/28/18 Time of Encounter: 01:18 Notified by nurse of negative venous duplex and no repeat chest CTA to attempt to again rule out PE as initial CTA was unable to rule out. Due to patients continued 02 need and venous duplex being negative, will order repeat chest CTA. Discussed with Dr Blackwell.
[2018-05-28] MEDS: Ipratropium/Albuterol Neb 3 ML IH SCH ×5 (04:28→20:01)
[2018-05-28 05:52] LABS: Basophils % 0.2 %; Hematocrit 35.5 % (35.3-44.9); Hemoglobin 11.5 g/dL (11.5-15.4); Immature Granulocytes % 1.8 % (0-4); Lymphocytes # 0.3 K/mcL (0.6-4.6); Lymphocytes % 7.3 %; Mean Corpuscular HGB Conc 32.4 g/dL (31.6-35.5); Mean Corpuscular Volume 86.6 fL (83.0-100.0); Mean Platelet Volume 9.5 fL (9.4-12.4); Monocytes # 0.1 K/mcL (0.0-1.3); Monocytes % 2.7 %; Neutrophils # 3.9 K/mcL (1.6-8.9); Platelet Count 153 K/mcL (140-400); Red Cell Distribution Width 15.4 % (11.5-14.5)
[2018-05-28] MEDS: *HR* Enoxaparin 40 MG/0.4 ML SYRINGE SQ SCH (05:56)
[2018-05-28] MEDS: Acetaminophen 325 MG TABLET PO SCH ×4 (05:56→23:33)
[2018-05-28 06:11] LABS: BUN/Creatinine Ratio 19 (6-26); Blood Urea Nitrogen 15 mg/dL (6-20); Calcium 8.9 mg/dL (8.6-10.3); Carbon Dioxide 26 mEq/L (23-29); Chloride 106 mEq/L (98-107); Glucose 166 mg/dL (70-105); Osmolality,Calculated 293 (280-300); Phosphorous 2.9 mg/dL (2.7-4.5); Potassium 3.8 mEq/L (3.5-5.1); Sodium 139 mEq/L (136-145); eGFR For Non-African Americans > 60 (> 60)
[2018-05-28] MEDS: methylPREDNISolone 125 MG/2 ML VIAL IVP SCH ×3 (09:13→23:34)
--- NOTE | 2018-05-28 11:33 | Internal Med Progress Note ---
Hospitalist Progress Note - Encounter Date of Encounter: 05/28/18 Time of Encounter: 11:31 - Subjective Interval History: Continues to feel tired, out of breath, myalgias. Still desatting and wheezy. Overnight apparently pt sent for repeat CTPE? - Exam Vitals: Temp Pulse Resp BP Pulse Ox 97.7 F 92 18 136/91 95 05/28/18 07:44 05/28/18 07:44 05/28/18 07:47 05/28/18 07:44 05/28/18 07:47 Exam: General: still diaphoretic, ill but non-toxic appearing, still wearing O2 Thoracic: Still expiratory wheezing but improving today, normal work of breathing Cardio: Normal S1 and S2, regular rate and rhythm, no murmurs Abdomen: Soft, nontender, nondistended. Neuro: Awake, fully oriented. Speech fluent - Summary of Assessment and Plan Summary of Assessment and Plan: Mushtaq Andrade is a 38 F w hx asthma who p/w fever, myalgias, SOB and wheezing, with hypoxia and positive Flu A, suggestive of acute influenza infection causing a sthma exacerbation. Acute influenza A respiratory infection: improving - tamiflu 75 bid - droplet precautions Asthma exacerbation: improving slightly - continue solumedrol 80 daily - vicente q4h&prn Acute hypoxic respiratory failure: requiring O2 to maintain sats, likely 2/2 asthma 2/2 flu A above - wean as able - repeat CT overnight again unremarkable for PE Sepsis: resolved Diarrhea: resolved PPx: lovenox FEN: regular, no MIVF Lines: PIV Consults: Code: Full Dispo: patient requires inpatient eval and management at this time. Anticipate 1-2 days. Will be homegoing. - Time Spent with Patient Total time spent is greater than 50% in coordination of care (as documented) at patient's floor/unit and/or counseling patient: Internal Medicine: Result - Labs CBC & Chem 7: 05/28/18 05:41 05/28/18 05:41 Labs: Short CBC 05/28/18 Range/Units 05:41 WBC 4.4 (4.3-11.1) K/mcL Hgb 11.5 (11.5-15.4) g/dL Hct 35.5 (35.3-44.9) % Plt Count 153 (140-400) K/mcL Neutrophils # 3.9 (1.6-8.9) K/mcL BMP 05/28/18 05:41 Sodium 139 Potassium 3.8 Chloride 106 Carbon Dioxide 26 BUN 15 Creatinine 0.77 Glucose 166 H Calcium 8.9 - ABG Interpretation ABG results: ABG ABG pH 7.51 pH Units (7.32-7.45) H 05/24/18 20:15 ABG pCO2 27 mmHg (35-45) L 05/24/18 20:15 ABG pO2 73 mmHg (85-104) L 05/24/18 20:15 ABG O2 Saturation 96 % (95-98) 05/24/18 20:15 PT/INR, D-dimer PT 14.7 Seconds (9.4-12.1) H 05/24/18 23:24 D-Dimer 699 ng/mLFEU (0-500) H 05/24/18 20:05 - Impressions Impressions Chest CTA 05/28/18 01:16 IMPRESSION: Suboptimal evaluation of the subsegmental and more peripheral pulmonary arteries due to motion artifact, especially in the lower lobes. Given this, no definite acute pulmonary thromboembolic disease. No pulmonary hypertension or right ventricular strain. Increased bilateral lower lobe predominant heterogeneous opacities may relate to an infectious/inflammatory process. No pulmonary mass or consolidation. Trace bilateral pleural fluid. D/ / Landry Connolly / Landry Sessions Interpreting Provider: Landry Connolly Consult Discharge Plan - Plan Referrals: Shaquille Ruggiero DO [Partnered Physician] - 06/06/18 1:30 pm (Please take with you your new patient packet that will arrive in the mail filled out, if you don't receive your new patient packet please show up 30 minutes early to fill out paper work. Please take with you your picture ID, Ins. Card, all medications including over the counter meds. This office does not give out controlled meds. If you need to cancel please call [phone] 24 hours prior to your appointment. this office is located across from [facility].)
[2018-05-29] MEDS: Ipratropium/Albuterol Neb 3 ML IH SCH ×5 (00:23→16:07)
[2018-05-29] MEDS: Acetaminophen 325 MG TABLET PO SCH ×3 (05:59→17:25)
[2018-05-29] MEDS: *HR* Enoxaparin 40 MG/0.4 ML SYRINGE SQ SCH (05:59)
[2018-05-29] MEDS: methylPREDNISolone 125 MG/2 ML VIAL IVP SCH (07:34)
--- NOTE | 2018-05-29 10:19 | Discharge Summary ---
- NOTES TO OUTPATIENT PROVIDER Notes to Outpatient Provider: New home O2 following asthma exacerbation from Influenza Date of Encounter: 05/29/18 Time of Encounter: 10:15 - Discharge Diagnosis (1) Asthma exacerbation Priority: Primary Status: Acute Qualifiers: Asthma severity: moderate Asthma persistence: persistent Qualified Code (s): J45.41 - Moderate persistent asthma with (acute) exacerbation (2) Acute on chronic respiratory failure with hypoxia Priority: Primary Status: Acute Hospital course: Dear Doctors, I recently had the opportunity to care for this patient during their hospital stay at [facility]. Mushtaq Andrade is a 38 F w hx asthma who in the past required supplemental O2 but subsequently stopped wearing it, who presented at time of admission with fever, myalgias, SOB and wheezing, with hypoxia. In the ED, she was evaluated and found to meet sepsis criteria, and started on abx. A D-dimer was positive so patient was sent for CTPE which was indeterminate and thus patient was started on heparin gtt prior to admission. In the hospital, patient swabbed for flu due to symptoms and it was positive for Flu A as cause of her asthma exacerbation. Abx and heparin was stopped. The pat ient was started on Tamiflu and did require supplemental oxygen to maintain sats while ambulating throughout hospital stay and at time of discharge. I performed walk test with patient and she hovered between 87-92% at rest and with ambulation. It is very likely that patient has chronic hypoxemic respiratory failure and needs home O2, and this will be arranged. She will complete a short prednisone course, was given Rx for nebulizer, and started on a controller LABA/ICS. 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 Please contact me with any questions or concerns regarding their hospital stay. Sincerely, Gianfranco Lopez MD - Time Spent with Patient Total time spent providing and/or coordinating discharge services: - Discharge Medications Prescriptions: Albuterol Neb [Proventil Neb] 2.5 mg IH Q4H PRN #30 inhsol PRN Reason: Shortness Of Breath/Wheezing Fluticasone/Salmeterol [Advair Hfa 115-21 Mcg Inhaler] 12 gm IH BID #1 hfa.aer.ad Oxygen 2 each .ROUTE AD #1 each predniSONE [PredniSONE] 40 mg PO DAILY #10 tablet Home Medications: Albuterol Sulfate [Albuterol Inhaler] 2 puff IH Q4HR PRN 04/06/18 [History] Albuterol Neb [Proventil Neb] 2.5 mg IH Q4H PRN #30 inhsol 05/29/18 [Rx] Fluticasone/Salmeterol [Advair Hfa 115-21 Mcg Inhaler] 12 gm IH BID #1 hfa.aer.ad 05/29/18 [Rx] Oxygen 2 each .ROUTE AD #1 each 05/29/18 [Rx] predniSONE [PredniSONE] 40 mg PO DAILY #10 tablet 05/29/18 [Rx] Allergies/Adverse Reactions: Allergy/AdvReac Type Severity Reaction Status Date / Time fentanyl Allergy Itching Verified 05/25/18 21:31 Date of admission: 05/25/18 02:42 Primary care physician: PCP NONE - Constitutional Vitals: Temp Pulse Resp BP Pulse Ox 97.7 F 98 20 107/70 93 05/29/18 08:02 05/29/18 08:02 05/29/18 08:02 05/29/18 08:02 05/29/18 08:02 General appearance: Present: cooperative, mild distress, A&O X 3, pleasant, answers questions appropriately Exam: General: resting comfortably, ill but non-toxic appearing, does wheeze audibly with exertion Thoracic: expiratory wheezing throughout, normal work of breathing Cardio: Normal S1 and S2, regular rate and rhythm, tachycardic with exertion Abdomen: Soft, nontender, nondistended. Neuro: Awake, fully oriented. Speech fluent - Patient Status Disposition: Home, Self-Care Condition: Fair Functional capacity at discharge: independent ambulation Overall status at discharge: patient is progressing back to baseline - Discharge Instructions Follow Up With: Shaquille Ruggiero DO [Partnered Physician] - 06/06/18 1:30 pm (Please take with you your new patient packet that will arrive in the mail filled out, if you don't receive your new patient packet please show up 30 minutes early to fill out paper work. Please take with you your picture ID, Ins. Card, all medication s including over the counter meds. This office does not give out controlled meds. If you need to cancel please call [phone] 24 hours prior to your appointment. this office is located across from [facility].) Additional Instructions: Needs Referral to outpatient Pulmonology - Diet and Activity Activity: increase activity as tolerated, wear oxygen at all times Diet: advance to your usual diet
[2018-05-29 15:48] VITALS: BP 126/80
[2018-05-30] MEDS ORDERED: predniSONE 20 MG TABLET PO SCH (09:00)
== END 2018-05-29 18:09 | disposition home or self-care (01) | DRG 720 ==
LOC: 2NNU 17:05 → EMEROOARM 17:05 → OBSVTOIN 05-25 02:42 → SUATTDRO 05-25 02:42 → 2NNU 05-25 03:01 → 3NENU 05-25 22:34
PROVIDERS: ADMIT Pediatrics; ATTEND Internal Medicine